=== PATIENT | female | born 1970 | race Caucasian/White ===

== ENCOUNTER 2021-04-15 11:50 | Outpatient (REF) | payer SELFPAY ==
--- NOTE | ~2021-04-15 | MM_ITS ---
EXAMINATION: MM SCREENING DIGITAL BREAST TOMOSYNTHESIS, BILATERAL CLINICAL INFORMATION: Screening. Asymptomatic. The lifetime risk of breast cancer based on the Tyrer-Cuzick Model is 12%. COMPARISON: Mammography: 01/13/2020, 07/15/2019, 01/13/2019, 07/09/2018, 01/07/2018, 12/28/2017, 07/17/2016. TECHNIQUE: Digital breast tomosynthesis is performed in both the craniocaudal and mediolateral oblique views along with computer-aided detection (CAD). Synthesized 2D images are generated from the tomosynthesis. FINDINGS: There are scattered areas of fibroglandular density (ACR BI-RADS breast composition Category b). There are no significant masses, abnormal calcifications, or other abnormalities. There is no developing density or architectural abnormality. The axilla and skin contours are unremarkable. No significant changes. MM/MM tomosynthesis screening BI IMPRESSION: No mammographic evidence of malignancy. ASSESSMENT: BI-RADS 1: Negative RECOMMENDATION: Routine annual mammography screening. This patient's information was entered into a reminder system with a target due date for their next mammogram.
== END 2021-04-15 11:51 | disposition home or self-care (01) ==
LOC: HO.MAMMO 11:50
PROVIDERS: PCP Internal Medicine; Visit Provider Internal Medicine
DX: Z12.31 Encounter for screening mammogram for malignant neoplasm of breast (principal)
CPT/HCPCS: 77063; 77067

== ENCOUNTER 2022-05-06 11:52 | Outpatient (REF) | payer BC, SELFPAY ==
--- NOTE | ~2022-05-06 | MM_ITS ---
EXAMINATION: MM SCREENING DIGITAL BREAST TOMOSYNTHESIS, BILATERAL CLINICAL INFORMATION: Screening. Asymptomatic. The lifetime risk of breast cancer based on the Tyrer-Cuzick Model is 14%. COMPARISON: Mammography: 04/15/2021, 01/13/2020, 07/15/2019, 01/13/2019; left breast ultrasound 07/15/2019 TECHNIQUE: Digital breast tomosynthesis is performed in both the craniocaudal and mediolateral oblique views along with computer-aided detection (CAD). Synthesized 2D images are generated from the tomosynthesis. FINDINGS: There are scattered areas of fibroglandular density (ACR BI-RADS breast composition Category b). There is fine fibronodular parenchymal pattern is similar to prior exam. There are no significant masses, abnormal calcifications, or other abnormalities. No architectural abnormality. The axilla and skin contours are unremarkable. MM/MM tomosynthesis screening BI IMPRESSION: No mammographic evidence of malignancy. ASSESSMENT: BI-RADS 1: Negative RECOMMENDATION: Routine annual mammography screening. This patient's information was entered into a reminder system with a target due date for their next mammogram.
== END 2022-05-06 11:53 | disposition home or self-care (01) ==
LOC: HO.MAMMO 11:52
PROVIDERS: Visit Provider Internal Medicine
DX: Z12.31 Encounter for screening mammogram for malignant neoplasm of breast (principal)
CPT/HCPCS: 77063; 77067

== ENCOUNTER 2023-05-29 08:39 | Outpatient (REF) | payer BC, SELFPAY | END 2023-05-29 08:40 | disposition home or self-care (01) | LOC: HO.MAMMO 08:39 | PROVIDERS: PCP Internal Medicine; Visit Provider Internal Medicine | DX: Z12.31 Encounter for screening mammogram for malignant neoplasm of breast (principal) | CPT/HCPCS: 77063; 77067 ==

== ENCOUNTER → 2023-05-29 09:00 | Outpatient (BNV) | payer BC, SELFPAY | PROVIDERS: PCP Internal Medicine; Visit Provider Radiology Diagnostic Radiology | DX: Z12.31 Encounter for screening mammogram for malignant neoplasm of breast (principal) | CPT/HCPCS: 77063; 77067 ==

== ENCOUNTER 2023-07-15 15:09 | Outpatient (AMB) | payer BC, SELFPAY ==
--- NOTE | 2023-07-15 15:08 | AM.OFFWIN_ITS ---
Intake Vital Signs 07/15/23 15:23 Height 5 ft 1 in Weight 164 lb 8 oz BMI 31.1 BP 118/66 Blood Pressure Location Lt brachial Position Sitting Pulse 76 Pulse Source Pulse Oximeter Temp 98.2 F Temp Source Oral Pulse Oximetry (%) 98 Oxygen Delivery Method Room Air Intake Visit Reasons: Ep RT ear check Intake Note: Pt presents to the office today for c/o right bump on top of ear. Pt states she has had this for a long time and she states that it bleeds occasionally and will scab over. Allergies No Known Allergies Allergy (Unverified 07/15/23 15:25) HPI HPI Comments History of Present Illness Details 53 y/o female c/o a lesions on her right pinna superior aspect. She states it has been present for a long time and occasionally bleeds [facility] Social History (Updated 07/15/23 @ 15:26 by Mahogany Jaimes MA) Household Members: Family Housing: House Alcohol intake: current Alcohol intake frequency: holidays/special occasions only Patient Tobacco Use Status: Never used Tobacco Use of substances other than those prescribed or required for medical reasons: No Review of Systems Const All systems reviewed & are unremarkable except as noted in HPI and below Physical Exam Vital Signs: Last Vital Signs Temp 98.2 F 07/15/23 15:23 Pulse 76 07/15/23 15:23 BP 118/66 07/15/23 15:23 Pulse Ox 98 07/15/23 15:23 Oxygen Delivery Method Room Air 07/15/23 15:23 BMI result Body Mass Index 31.1 Const General: healthy appearing HEENT Head: Yes normal to inspection, Yes normocephalic and Yes atraumatic Ears: hearing grossly normal bilaterally and external ear abnormal other (A 2 seen cm irregularly irregular lesion present superior pinna) General nose exam: Normal external nose present Face and sinus: Yes normal facial exam Skin Lesions: lesion noted (Superior aspect of the right pinna) Assessment & Plan Assessment & Plan (1) Skin infection: Code(s): L08.9 - Local infection of the skin and subcutaneous tissue, unspecified (2) Lesion of right earlobe: Code(s): H61.91 - Disorder of right external ear, unspecified Plan: The lesion had slight area of pustule. I treated her with cephalexin for 7 days but advised she see Dermatology to have the lesion removed and biopsied. She will follow up with her PCP for referral Plan See plan Medications: New cephalexin 500 mg PO BID 14 caps 0RF 7 days Coding Level of Care Code Est Pt Level 3 (46645) Diagnoses Skin infection L08.9 Lesion of right earlobe H61.91
[2023-07-15 15:23] VITALS: BP 118/66; PULSE 76; TEMP 36.8; O2SAT 98; BMI 31.1
== END 2023-07-15 15:59 | disposition home or self-care (01) ==
PROVIDERS: PCP Internal Medicine; Visit Provider Physician Assistant Medical
DX: L08.9 Local infection of the skin and subcutaneous tissue, unspecified (principal); H61.91 Disorder of right external ear, unspecified
CPT/HCPCS: 99213

== ENCOUNTER 2023-07-16 14:21 | Outpatient (AMB) | payer BC, SELFPAY ==
[2023-07-16 14:23] VITALS: BP 102/70; PULSE 81; O2SAT 98; BMI 31.0
--- NOTE | 2023-07-16 14:23 | A.OFFPC_ITS ---
Vital Signs 3 07/16/23 14:23 Height 5 ft 1 in Weight 164 lb 0.4 oz BMI 31.0 BP 102/70 Blood Pressure Location Lt brachial Position Sitting Pulse 81 Pulse Source Pulse Oximeter Pulse Oximetry (%) 98 Oxygen Delivery Method Room Air Intake Visit Reasons: Derm Referral Request Burnisher And Bumper Required: No Allergies No Known Allergies Allergy (Verified 07/16/23 14:23) Medication List - Last Reconciled 07/16/23 by Elena Terry MD cephalexin 500 mg PO BID 7 days Tobacco use date assessed: 07/16/23 Dental Screening Dental Screen Date: 07/16/23 HPI Derm Referral Request 2 HPI0 Details 53-year-old obese [place] [facility] [place] [facility] [place]. Patient has not been seen for multiple years. Review of the notes last seen in October 07 2016 diagnosis of stress incontinence. Patient went to the Urgent Center recently for lesion on the ear. Patient was prescribed antibiotic. bump on the R ear 1 year , changed to a sore 1 month ago bleeds and scabs. [facility] Surgical History (Updated 07/16/23 @ 14:44 by Elena Terry MD) H/O tubal ligation Family History (Updated 07/16/23 @ 14:50 by Elena Terry MD) Father Prostate CA Bladder carcinoma Melanoma Apollo cell cancer Social History (Updated 07/16/23 @ 14:50 by Elena Terry MD) Household Members: Family Housing: House Alcohol intake: current Alcohol intake frequency: holidays/special occasions only Comment: 2x a year 3-4 drinks Patient Tobacco Use Status: Never used Tobacco service: No Current occupational status: employed Cognitive needs: No Hearing needs: No Vision needs: No Questionnaire PHQ-9 Over the last 2 weeks, how often have you been bothered by any of the following problems? 1. Little interest or pleasure in doing things: not at all 2. Feeling down, depressed, or hopeless: not at all 3. Trouble falling or staying asleep, or sleeping too much: not at all 4. Feeling tired or having little energy: not at all 5. Poor appetite or overeating: not at all 6. Feeling bad about yourself - or that you are a failure or have let yourself or your family down: not at all 7. Trouble concentrating on things, such as reading the newspaper or watching television: not at all 8. Moving or speaking so slowly that other people could have noticed. Or the opposite - being so fidgety or restless that you have been moving around a lot more than usual: not at all 9. Thoughts that you would be better off or of hurting yourself in some way: not at all Total score: 0 Depression Screening Interpretation: Negative Depression Screening Done: Yes [id number] - PHQ-9 Billing: Yes Source: Developed by Drs. Ciro Gomez, Chintan Snyder and colleagues, with an educational maddi from [employer]. Thrive Questionnaire Date Thrive assessed: 07/16/23 I am a: Patient What is your living situation today?: I have a steady place to live Within the past 12 months, did the food you bought not last and you didn't have the money to get more?: Never true Within the past 12 months, did you worry whether your food would run out before you got money to buy more?: Never true Do you have trouble paying for medicines?: No Do you have trouble getting transportation to medical appointments?: No Do you have trouble paying your heating and electricity bill?: No Do you have trouble taking care of your child, family member or friend?: No Do you have trouble with day-to-day activities such as bathing, preparing meals, shopping, managing finances, etc.?: No Are you currently unemployed and looking for a job?: No Are you interested in more education?: No Please select the resources that you would like help with: None Currently or been in a relationship where the following occur: no concerns reported THRIVE Score: 0 AUDIT C Alcohol Use Questionnaire (AUDIT-C) 1. How often do you have a drink containing alcohol?: Never 3. How often do you have six or more drinks on one occasion?: Never Total Score: 0 ELMO-7 AMB Questionnaire ELMO-7 Date ELMO - 7 assessed: 07/16/23 Source: Developed by Drs. Ciro Gomez, Juana Armas, Chintan Hutson and colleagues, with an educational maddi from [employer]. Physical exam (Primary Care) Vital Signs: Last Vital Signs Pulse 81 07/16/23 14:23 BP 102/70 07/16/23 14:23 Pulse Ox 98 07/16/23 14:23 Oxygen Delivery Method Room Air 07/16/23 14:23 BMI result Body Mass Index 31.0 Tobacco/Smoking Status: Tobacco use Status Tobacco use date assessed 07/16/23 07/16/23 14:24 Patient Tobacco Use Status Never used Tobacco 07/16/23 14:50 PHQ-9: PHQ-9 Score PHQ-9: Total score 0 07/16/23 18:06 Depression Screening Interpretation: Negative Thrive Assessment: Date of Thrive Assessment Date Thrive assessed 07/16/23 07/16/23 14:24 Currently or been in a relationship where the following occur: no concerns reported Const General: alert; No acute distress HENMT Outer ear/TM images: 2 1. 1 cm rash on the right ear with an area scabbed as well as clear discharge coming out with some erythema on 1 side. Eyes Conjunctivae: conjunctivae normal Resp Auscultation: clear to auscultation bilaterally Cardio Rate: regular rate Rhythm: regular rhythm GI Inspection: Yes normal to inspection Extrem General: Yes normal to inspection and No edema Assessment and Plan Assessment & Plan (1) Lesion of right earlobe: Code(s): H61.91 - Disorder of right external ear, unspecified (2) Obesity (BMI 30.0-34.9): Code(s): E66.9 - Obesity, unspecified (3) Colon cancer screening: Code(s): Z12.11 - Encounter for screening for malignant neoplasm of colon (4) Cervical cancer screening: Code(s): Z12.4 - Encounter for screening for malignant neoplasm of cervix (5) Lipoma: Comment: L arm Code(s): D17.9 - Benign lipomatous neoplasm, unspecified Orders: Orders 2 Comprehensive Met. Panel Today E66.9 - Obesity, unspecified Free T4 (Free Thyroxine) Today E66.9 - Obesity, unspecified Lipid Panel Today E66.9 - Obesity, unspecified, E78.00 - Pure hypercholesterolemia, unspecified Vitamin B12 and Folate Today E66.9 - Obesity, unspecified Vitamin D 25-OH Total Today E66.9 - Obesity, unspecified Complete Blood Count Auto Diff Today E66.9 - Obesity, unspecified Thyroid Stimulating Hormone Today E66.9 - Obesity, unspecified Referrals 2 WOOD PILE DRIVER OPERATOR Referral Z12.4 - Encounter for screening for malignant neoplasm of cervix Dermatology Referral H61.91 - Disorder of right external ear, unspecified Cologuard Test Z12.11 - Encounter for screening for malignant neoplasm of colon, Z12.12 - Encounter for screening for malignant neoplasm of rectum Coding Level of Care Code Est Pt Level 4 (99634) Diagnoses Lesion of right earlobe H61.91 Obesity (BMI 30.0-34.9) E66.9 Colon cancer screening Z12.11 Cervical cancer screening Z12.4 Lipoma D17.9
== END 2023-07-16 15:32 | disposition home or self-care (01) ==
PROVIDERS: PCP Internal Medicine; Visit Provider Internal Medicine
DX: H61.91 Disorder of right external ear, unspecified (principal); E66.9 Obesity, unspecified; Z68.31 Body mass index [BMI] 31.0-31.9, adult; Z12.11 Encounter for screening for malignant neoplasm of colon; D17.9 Benign lipomatous neoplasm, unspecified
CPT/HCPCS: 99214

== ENCOUNTER 2023-07-24 09:58 | Outpatient (REF) | payer BC, SELFPAY ==
[2023-07-24 10:13] LABS: MANUAL DIFF FLAG NO
[2023-07-24 10:43] LABS: Basophils Percent Auto 0.8 % (0-2); Eosinophils Absolute Auto 0.1 X10*3/uL (0.0-0.4); Eosinophils Percent Auto 1.5 % (0-4); Hematocrit 40.5 % (37.0-47.0); Hemoglobin 13.6 g/dl (12.0-16.0); Imm Gran Abs Auto 0.01 X10*3/uL (0.00-0.03); Imm Gran Pct Auto 0.2 % (0.0-0.4); Lymphocytes Absolute Auto 2.6 X10*3/uL (1.2-4.9); Lymphocytes Percent Auto 55.6 % (20-40); Mean Corpuscular HGB Conc 33.6 g/dl (31.0-35.0); Mean Corpuscular Hemoglobin 31.1 pg (27.0-33.0); Mean Corpuscular Volume 92.7 fL (80.0-98.0); Mean Platelet Volume 9.6 fL (9.4-12.3); Monocytes Absolute Auto 0.3 X10*3/uL (0.1-1.2); Monocytes Percent Auto 6.9 % (2-11); Neutrophils Absolute Auto 1.7 x10*3/uL (2.0-8.3); Platelet Count 218 X10*3/uL (160-400); Red Blood Count 4.37 X10*6/uL (4.20-5.50); Red Cell Distribution Width 12.7 % (11.0-16.0); White Blood Count 4.8 X10*3/uL (4.8-10.8)
[2023-07-24 11:34] LABS: Alanine Aminotransferase 11 U/L (0-31); Albumin Level 4.2 g/dL (3.5-5.0); Alkaline Phosphatase 71 U/L (39-117); Anion Gap 11 (12-20); Aspartate Amino Transferase 13 U/L (5-31); Bilirubin Total 0.6 mg/dL (0.0-1.0); Blood Urea Nitrogen 14 mg/dL (9-16); Calcium 9.5 mg/dL (8.4-10.2); Carbon Dioxide 26 mmol/L (22-29); Chloride 107 mmol/L (96-108); Cholesterol 188 mg/dL (<200); Estimated Glomerular Filt Rate > 60; Glucose Random 98 mg/dL (60-115); HDL Cholesterol 62 mg/dL (>40); LDL Cholesterol Calculated 111 mg/dL (<100); Potassium 4.3 mmol/L (3.3-5.1); Sodium 140 mmol/L (135-145); Total Protein 7.4 g/dL (6.5-8.0); Triglycerides 78 mg/dL (<150)
[2023-07-24 11:56] LABS: Free T4 (Free Thyroxine) 0.86 ng/dL (0.71-1.85); Thyroid Stimulating Hormone 1.32 uIU/mL (0.32-4.0); Vitamin D 25-OH Total 31.4 ng/mL (>30)
[2023-07-24 12:38] LABS: Folate 8.8 ng/mL (> or = 4.0)
[2023-07-24 12:48] LABS: Vitamin B12 404 pg/mL (200-900)
== END 2023-07-24 09:59 | disposition home or self-care (01) ==
LOC: HO.LAB 09:58
PROVIDERS: PCP Internal Medicine; Visit Provider Internal Medicine
DX: E66.9 Obesity, unspecified (principal); E78.00 Pure hypercholesterolemia, unspecified
CPT/HCPCS: 36415; 80053; 80061; 82306; 82607; 82746; 84439; 84443; 85025

== ENCOUNTER 2023-12-11 15:50 | Outpatient (AMB) | payer BC, SELFPAY ==
--- NOTE | 2023-12-11 15:52 | MHC.PC.OV ---
Vital Signs 12/11/23 15:53 Height 5 ft 1 in Weight 159 lb 6 oz BMI 30.1 BP 122/78 Blood Pressure Location Lt brachial Position Sitting Pulse 75 Pulse Source Pulse Oximeter Pulse Oximetry (%) 98 Oxygen Delivery Method Room Air Intake Visit Reasons: Annual exam - see comments Vp Strategy Required: No Accompanied by: Self / Same As Patient Allergies No Known Allergies Allergy (Verified 12/11/23 15:53) Medication List - Last Reconciled 12/11/23 by Elena Terry MD Tobacco use date assessed: 12/11/23 Dental Screening Dental Screen Date: 12/11/23 Did you have a dental visit in the last 12 months?: No Did you have a dental problem in the last 6 months where you did not have access to dental care?: No Was dental information given to patient?: No HPI Annual exam - see comments HPI Details 53-year-old obese female coming in for physical exam last seen in 07/08/2023. Mammogram is up-to-date [facility] Surgical History (Updated 07/16/23 @ 14:44 by Elena Terry MD) H/O tubal ligation Family History Father Prostate CA Bladder carcinoma Melanoma Apollo cell cancer Social History Household Members: Family Housing: House Alcohol intake: current Alcohol intake frequency: holidays/special occasions only Comment: 2x a year 3-4 drinks Patient Tobacco Use Status: Never used Tobacco e-Cigarette/Vaping Use: Never Used service: No Current occupational status: employed Cognitive needs: No Hearing needs: No Vision needs: No Questionnaire PHQ-9 Over the last 2 weeks, how often have you been bothered by any of the following problems? 1. Little interest or pleasure in doing things: not at all 2. Feeling down, depressed, or hopeless: not at all 3. Trouble falling or staying asleep, or sleeping too much: not at all 4. Feeling tired or having little energy: not at all 5. Poor appetite or overeating: not at all 6. Feeling bad about yourself - or that you are a failure or have let yourself or your family down: not at all 7. Trouble concentrating on things, such as reading the newspaper or watching television: not at all 8. Moving or speaking so slowly that other people could have noticed. Or the opposite - being so fidgety or restless that you have been moving around a lot more than usual: not at all 9. Thoughts that you would be better off or of hurting yourself in some way: not at all Total score: 0 Depression Screening Interpretation: Negative Depression Screening Done: Yes 80409 - PHQ-9 Billing: Yes Source: Developed by Drs. Ciro Gomez, Juana Armas, Chintan Hutson and colleagues, with an educational maddi from [employer]. Thrive Questionnaire Date Thrive assessed: 12/11/23 I am a: Patient What is your living situation today?: I have a steady place to live Within the past 12 months, did the food you bought not last and you didn't have the money to get more?: Never true Within the past 12 months, did you worry whether your food would run out before you got money to buy more?: Never true Do you have trouble paying for medicines?: No Do you have trouble getting transportation to medical appointments?: No Do you have trouble paying your heating and electricity bill?: No Do you have trouble taking care of your child, family member or friend?: No Do you have trouble with day-to-day activities such as bathing, preparing meals, shopping, managing finances, etc.?: No Are you currently unemployed and looking for a job?: No Are you interested in more education?: No Please select the resources that you would like help with: None THRIVE Score: 0 AUDIT C Alcohol Use Questionnaire (AUDIT-C) 1. How often do you have a drink containing alcohol?: Never 3. How often do you have six or more drinks on one occasion?: Never Total Score: 0 ELMO-7 AMB Questionnaire ELMO-7 Date ELMO - 7 assessed: 12/11/23 Feeling nervous, anxious, or on edge: 0 = Not at all Not being able to stop or control worryin = Not at all Worrying too much about different things: 0 = Not at all Trouble relaxin = Not at all Being so restless that it is hard to sit still: 0 = Not at all Becoming easily annoyed or irritable: 0 = Not at all Feeling afraid as if something awful might happen: 0 = Not at all Total ELMO-7 score (0-4 normal; 5-9 mild; 10-14 moderate; 15-21 severe): 0 Source: Developed by Drs. Ciro Gomez, Juana Armas, Chintan Hutson and colleagues, with an educational maddi from [employer]. Review of Systems Const Denies poor appetite and Denies weakness Eyes Denies no additional complaints ENT Reports Normal hearing present, Denies dizziness, Denies nasal congestion, Denies tinnitus and Denies sore throat Card Denies chest pain, Denies syncope, Denies rapid heart rate and Denies dyspnea Resp Denies cough and Denies dyspnea GI Denies change in stool character, Reports constipation, Denies diarrhea, Denies nausea and Denies vomiting Denies urinary frequency, Denies difficulty voiding and Denies dysuria Neuro Reports Normal hearing present, Denies confusion, Denies dizziness, Denies syncope and Denies weakness Psych Denies confusion Physical exam (Primary Care) Vital Signs: Last Vital Signs Pulse 75 12/11/23 15:53 BP 122/78 12/11/23 15:53 Pulse Ox 98 12/11/23 15:53 Oxygen Delivery Method Room Air 12/11/23 15:53 BMI result Body Mass Index 30.1 Tobacco/Smoking Status: Tobacco use Status Tobacco use date assessed 12/11/23 12/11/23 15:54 Patient Tobacco Use Status Never used Tobacco 12/11/23 15:54 e-Cigarette/Vaping Use Never Used 12/11/23 15:54 PHQ-9: PHQ-9 Score PHQ-9: Total score 0 12/11/23 16:56 Depression Screening Interpretation: Negative Thrive Assessment: Date of Thrive Assessment Date Thrive assessed 12/11/23 12/11/23 15:54 Const General: No confusion Orientation/consciousness: No confusion HENMT Head: Yes normocephalic Ears: external ears normal and TM's normal bilaterally Outer ear/TM images: 1. Polypoid shiny lesion 5 mm on the right ear Face and sinus: Yes normal facial exam Mouth: moist mucous membranes Throat: Yes tonsils normal Eyes Conjunctivae: conjunctivae normal Pupils: Equal, round and reactive pupils present and Pupil accommodation reflex normal Direct Ophthalmoscopy: normal light reflex Neck Neck: No lymphadenopathy Thyroid: Thyroid normal Chest Chest palpation & inspection: normal inspection of the chest Resp Effort & Inspection: normal respiratory effort and no audible wheezes Auscultation: clear to auscultation bilaterally, no crackles, no wheezes and lung sounds not diminished Cardio Rate: regular rate Rhythm: regular rhythm Peripheral pulses: radial pulses present and dorsalis pedis present GI Palpation (GI): no masses Auscultation: normal bowel sounds and normoactive bowel sounds Rectal Exam - Female: deferred Skin General skin exam: no rashes or lesions noted Rashes: no rashes Neuro General: No confusion Cranial nerves: Yes Equal, round and reactive pupils present and Yes Normal hearing present Cognition (Neuro): normal cognition Gait exam (Neuro): Normal gait present Motor exam (neuro): 5/5 motor strength present throughout Deep tendon reflexes (DTR's): Right brachioradialis reflex intensity grade: 2+, Left brachioradialis reflex intensity grade: 2+, Right patellar reflex intensity grade: 2+ and Left patellar reflex intensity grade: 2+ Extrem General: No edema Immunizations tetanus-diphtheria toxoids-Td 2 Lf unit-2 Lf unit/0.5 mL IM suspension Performing Provider: Elena Terry MD Per[facility] Location[facility] Administered by: AL Segundo on 12/11/23 17:33 Dose Route Admin Location Dispensed Lot Number Expiration Date NDC Pay Per Click Strategist 0.5 mL IM Left Deltoid 0.5 mL [id number] 05/30/24 [address]-9 [employer] VIS Given Date VIS Provided VIS Publication Date 12/11/23 Single Vaccine 20 Eligibility Eligibility Date Funding Source Not [facility] Eligible 12/11/23 [facility] Assessment and Plan Assessment & Plan (1) Annual physical exam: Code(s): Z00.00 - Encounter for general adult medical examination without abnormal findings Plan: Patient is advised to eat healthy, keep well hydrated, keep active and have adequate sleep. (2) Obesity (BMI 30.0-34.9): Code(s): E66.9 - Obesity, unspecified Plan: Diet and exercise (3) Colon cancer screening: Code(s): Z12.11 - Encounter for screening for malignant neoplasm of colon Plan: Reminded about colonoscopy cologuard at home (4) Lesion of right earlobe: Code(s): H61.91 - Disorder of right external ear, unspecified Plan: Patient Has been referred to the marketing operations intern but patient has not heard anything. Will inquire on this as that was an urgent referral. Orders: Orders Td State Immunization Today Z23 - Encounter for immunization Medications: New tetanus-diphtheria toxoids-Td 0.5 mL IM ONCE 0.5 mL 0RF Z23 - Encounter for immunization Coding Level of Care Code Est Pt Prev Care 40-64y(90520) Diagnoses Annual physical exam Z00.00 Obesity (BMI 30.0-34.9) E66.9 Colon cancer screening Z12.11 Lesion of right earlobe H61.91
[2023-12-11 15:53] VITALS: BP 122/78; PULSE 75; O2SAT 98; BMI 30.1
== END 2023-12-11 17:14 | disposition home or self-care (01) ==
PROVIDERS: PCP Internal Medicine; Visit Provider Internal Medicine
DX: Z00.00 Encounter for general adult medical examination without abnormal findings (principal); E66.9 Obesity, unspecified; H61.91 Disorder of right external ear, unspecified; Z23 Encounter for immunization; Z68.30 Body mass index [BMI] 30.0-30.9, adult; Z12.11 Encounter for screening for malignant neoplasm of colon
CPT/HCPCS: 90471; 90714; 99396

== ENCOUNTER 2024-08-05 15:09 | Outpatient (REF) | payer BC, SELFPAY | END 2024-08-05 15:10 | disposition home or self-care (01) | LOC: HO.MAMMO 15:09 | PROVIDERS: PCP Internal Medicine; Visit Provider Internal Medicine | DX: Z12.31 Encounter for screening mammogram for malignant neoplasm of breast (principal) | CPT/HCPCS: 77063; 77067 ==

== ENCOUNTER → 2024-08-05 15:30 | Outpatient (BNV) | payer BC, SELFPAY | PROVIDERS: PCP Internal Medicine; Visit Provider Internal Medicine | DX: Z12.31 Encounter for screening mammogram for malignant neoplasm of breast (principal) | CPT/HCPCS: 77063; 77067 ==

== ENCOUNTER 2024-12-15 12:16 | Outpatient (AMB) | payer BC, SELFPAY ==
--- NOTE | 2024-12-15 12:19 | A.OFFPC_ITS ---
Vital Signs 12/15/24 12:20 Height 5 ft 1 in Weight 167 lb BMI 31.6 BP 118/78 Blood Pressure Location Lt brachial Position Sitting Pulse 80 Pulse Source Pulse Oximeter Pulse Oximetry (%) 97 Oxygen Delivery Method Room Air Intake Visit Reasons: annual exam Allergies No Known Allergies Allergy (Verified 12/15/24 12:20) Medication List - Last Reconciled 12/15/24 by Elena Terry MD No Known Home Meds Tobacco use date assessed: 12/15/24 Dental Screening Dental Screen Date: 12/15/24 Did you have a dental visit in the last 12 months?: No Did you have a dental problem in the last 6 months where you did not have access to dental care?: No Was dental information given to patient?: No PFSH Surgical History (Updated 07/16/23 @ 14:44 by Elena Terry MD) H/O tubal ligation Family History (Updated 12/15/24 @ 12:21 by Angela Alejandro CMA) Father Prostate CA Bladder carcinoma Melanoma [place] cell cancer Social History (Updated 12/15/24 @ 12:39 by Elena Terry MD) Household Members: Family Housing: House Alcohol intake: current Alcohol intake frequency: holidays/special occasions only Comment: 2x a year 2-3 drinks Patient Tobacco Use Status: Never used Tobacco Tobacco use type: Cigarette e-Cigarette/Vaping Use: Never Used Second Hand Smoke Exposure: No service: No Current occupational status: employed Cognitive needs: No Hearing needs: No Vision needs: Yes Questionnaire PHQ-9 Over the last 2 weeks, how often have you been bothered by any of the following problems? 1. Little interest or pleasure in doing things: not at all 2. Feeling down, depressed, or hopeless: not at all 3. Trouble falling or staying asleep, or sleeping too much: not at all 4. Feeling tired or having little energy: not at all 5. Poor appetite or overeating: not at all 6. Feeling bad about yourself - or that you are a failure or have let yourself or your family down: not at all 7. Trouble concentrating on things, such as reading the newspaper or watching television: not at all 8. Moving or speaking so slowly that other people could have noticed. Or the opposite - being so fidgety or restless that you have been moving around a lot more than usual: not at all 9. Thoughts that you would be better off or of hurting yourself in some way: not at all Total score: 0 Depression Screening Interpretation: Negative Depression Screening Done: Yes Source: Developed by Drs. Ciro Gomez, Juana Armas, Chintan Hutson and colleagues, with an educational maddi from [employer]. Thrive Questionnaire Date Thrive assessed: 12/15/24 I am a: Patient What is your living situation today?: I have a steady place to live Within the past 12 months, did the food you bought not last and you didn't have the money to get more?: Never true Within the past 12 months, did you worry whether your food would run out before you got money to buy more?: Never true Do you have trouble paying for medicines?: No Do you have trouble getting transportation to medical appointments?: No Do you have trouble paying your heating and electricity bill?: No Do you have trouble taking care of your child, family member or friend?: No Do you have trouble with day-to-day activities such as bathing, preparing meals, shopping, managing finances, etc.?: No Are you currently unemployed and looking for a job?: No Are you interested in more education?: No Please select the resources that you would like help with: None Currently or been in a relationship where the following occur: No concerns reported THRIVE Score: 0 AUDIT C Alcohol Use Questionnaire (AUDIT-C) 1. How often do you have a drink containing alcohol?: 2-4 times a month 2. How many drinks containing alcohol do you have on a typical day when you are drinking?: 1 or 2 3. How often do you have six or more drinks on one occasion?: Never Total Score: 2 ELMO-7 AMB Questionnaire ELMO-7 Date ELOM - 7 assessed: 12/15/24 Feeling nervous, anxious, or on edge: 0 = Not at all Not being able to stop or control worryin = Not at all Worrying too much about different things: 0 = Not at all Trouble relaxin = Not at all Being so restless that it is hard to sit still: 0 = Not at all Becoming easily annoyed or irritable: 0 = Not at all Feeling afraid as if something awful might happen: 0 = Not at all Total ELMO-7 score (0-4 normal; 5-9 mild; 10-14 moderate; 15-21 severe): 0 Source: Developed by Drs. Ciro Gomez, Juana Armas, Chintan Hutson and colleagues, with an educational maddi from [employer]. Review of Systems Const Denies poor appetite and Denies weakness Eyes Denies no additional complaints ENT Reports Normal hearing present, Denies dizziness, Denies nasal congestion, Denies tinnitus and Denies sore throat Card Denies chest pain, Denies syncope, Denies rapid heart rate and Denies dyspnea Resp Denies cough and Denies dyspnea GI Denies change in stool character, Reports constipation, Denies diarrhea, Denies nausea and Denies vomiting Denies urinary frequency, Denies difficulty voiding and Denies dysuria Neuro Reports Normal hearing present, Denies confusion, Denies dizziness, Denies syncope and Denies weakness Psych Denies confusion Physical exam (Primary Care) Vital Signs: Last Vital Signs Pulse 80 12/15/24 12:20 BP 118/78 12/15/24 12:20 Pulse Ox 97 12/15/24 12:20 Oxygen Delivery Method Room Air 12/15/24 12:20 BMI result Body Mass Index 31.6 Tobacco/Smoking Status: Tobacco use Status Tobacco use date assessed 12/15/24 12/15/24 12:28 Patient Tobacco Use Status Never used Tobacco 12/15/24 12:39 Tobacco use type Cigarette 12/15/24 12:39 e-Cigarette/Vaping Use Never Used 12/15/24 12:39 PHQ-9: PHQ-9 Score PHQ-9: Total score 0 12/15/24 12:40 Depression Screening Interpretation: Negative Thrive Assessment: Date of Thrive Assessment Date Thrive assessed 12/15/24 12/15/24 12:28 Currently or been in a relationship where the following occur: No concerns reported Const General: No confusion Orientation/consciousness: No confusion HENMT Head: Yes normocephalic Ears: external ears normal and TM's normal bilaterally Face and sinus: Yes normal facial exam Mouth: moist mucous membranes Throat: Yes tonsils normal Eyes Conjunctivae: conjunctivae normal Pupils: Equal, round and reactive pupils present and Pupil accommodation reflex normal Direct Ophthalmoscopy: normal light reflex Neck Neck: No lymphadenopathy Thyroid: Thyroid normal Chest Chest palpation & inspection: normal inspection of the chest Resp Effort & Inspection: normal respiratory effort and no audible wheezes Auscultation: clear to auscultation bilaterally, no crackles, no wheezes and lung sounds not diminished Cardio Rate: regular rate Rhythm: regular rhythm Peripheral pulses: radial pulses present and dorsalis pedis present GI Palpation (GI): no masses Auscultation: normal bowel sounds and normoactive bowel sounds Rectal Exam - Female: deferred Skin General skin exam: no rashes or lesions noted Rashes: no rashes Neuro General: No confusion Cranial nerves: Yes Equal, round and reactive pupils present and Yes Normal hearing present Cognition (Neuro): normal cognition Gait exam (Neuro): Normal gait present Motor exam (neuro): 5/5 motor strength present throughout Deep tendon reflexes (DTR's): Right brachioradialis reflex intensity grade: 2+, Left brachioradialis reflex intensity grade: 2+, Right patellar reflex intensity grade: 2+ and Left patellar reflex intensity grade: 2+ Extrem General: No edema Coding Level of Care Code Est Pt Prev Care 40-64y(64382) Diagnoses Annual physical exam Z00.00 Obesity (BMI 30-39.9) E66.9 Colon cancer screening Z12.11 Lesion of right earlobe H61.91 Assessment & Plan Assessment & Plan (1) Annual physical exam: Code(s): Z00.00 - Encounter for general adult medical examination without abnormal findings Category: Medical Plan: Patient is advised to eat healthy, keep well hydrated, keep active and have adequate sleep. (2) Obesity (BMI 30-39.9): Code(s): E66.9 - Obesity, unspecified Category: Medical Plan: Diet and exercise (3) Colon cancer screening: Code(s): Z12.11 - Encounter for screening for malignant neoplasm of colon Category: Medical Plan: Patient is reminded about colon cancer screening (4) Lesion of right earlobe: Code(s): H61.91 - Disorder of right external ear, unspecified Category: Medical Plan History of Present Illness The patient is a 54-year-old female presenting for a routine physical examination and preventative care. She has a history of obesity and reports an ear discharge that has been present for about a year, sometimes leaking blood or clear liquid. She has not yet seen a emergency room rn for this issue despite a referral being made last year. Her preventative care includes a mammogram up to date as of July 2024 and a need for a new Cologuard test for colon cancer screening. Her last blood work in July showed normal results, including blood count, electrolytes, renal function, blood sugar, liver function, and vitamin levels. The patient reports no new diagnoses or surgeries since her last visit. 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 She consumes alcohol infrequently, about once a year, and denies smoking or recreational drug use. 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 flights of stairs daily - Alcohol use: Consumes alcohol infrequently, about once a year - Substance use: Denies smoking and recreational drug use Review of Systems - General: Denies fever, dizziness, nausea, vomiting - ENT: Reports ear discharge, denies pain on ear manipulation - Cardiovascular: Denies chest pain, palpitations, or syncope - Respiratory: Denies dyspnea, cough, or wheezing - Gastrointestinal: Denies heartburn, reports normal bowel movements - Genitourinary: Denies dysuria, nocturia - Neurological: Denies headaches, dizziness, or balance issues Physical Exam General: Cooperative, healthy appearing, comfortable, no acute distress and well developed Orientation: Patient oriented x3 Limitations: No limitations Head: Normal to inspection Ears: Hearing grossly normal bilaterally, but patient reports occasional leakage from one ear, sometimes blood or clear liquid Nose: Normal external nose present Face and sinus: Normal facial exam Eyes: Appearance normal, both eyes and all related structures; patient uses reading glasses for small print Neck: Normal visual inspection and Yes full ROM Respiratory: Normal respiratory effort and able to speak in complete sentences. Clear to auscultation bilaterally Cardiovascular: Regular rate and rhythm. Normal S1 and S2 GI: Normal to inspection. Soft to palpation and nontender Skin: No rashes or lesions noted Neuro: Patient oriented x3 Extremities: Normal to inspection Results - Labs: Blood work from July year showed normal blood count, electrolytes, renal function, blood sugar, liver function, LDL of 111, HDL of 62, and normal vitamin levels Plan Patient was informed and verbally consented to the use of an ambient scribe for clinic note documentation during this visit. 1. Obesity The patient is advised to maintain a healthy lifestyle, including regular exercise and a balanced diet, to manage her obesity. She is encouraged to continue her physical activities, such as walking up stairs and utilizing her boxing gym. 2. Ear Discharge The patient has been experiencing ear discharge for about a year, with occasional bleeding or clear liquid. A referral to a emergency room rn was made last year, but the patient has not yet been seen. Follow-up on the referral is necessary to address this ongoing issue. 3. Preventative Care: Colon Cancer Screening With Stool Test The patient is due for a new Cologuard test for colon cancer screening. She has been reminded to complete this test as part of her preventative care regimen. Discussion Notes During the visit, I discussed the importance of maintaining a healthy lifestyle with the patient, emphasizing regular exercise and a balanced diet to manage her obesity. We also reviewed her need for a new Cologuard test for colon cancer screening and the importance of completing this test. I addressed her ongoing ear discharge issue, noting the need for follow-up on the dermatology referral made last year. Patient Instructions - Maintain a healthy lifestyle with regular exercise and a balanced diet. - Complete the Cologuard test for colon cancer screening. - Follow up on the dermatology referral for ear discharge. Orders: Referrals Dermatology Referral H61.91 - Disorder of right external ear, unspecified
[2024-12-15 12:20] VITALS: BP 118/78; PULSE 80; O2SAT 97; BMI 31.6
== END 2024-12-15 13:34 | disposition home or self-care (01) ==
LOC: HO.HMCH 12:17
PROVIDERS: PCP Internal Medicine; Visit Provider Internal Medicine
DX: Z00.00 Encounter for general adult medical examination without abnormal findings (principal); E66.9 Obesity, unspecified; Z68.31 Body mass index [BMI] 31.0-31.9, adult; Z12.11 Encounter for screening for malignant neoplasm of colon; H61.91 Disorder of right external ear, unspecified